=== PATIENT | female | born 1935 | race Two or more races ===

== ENCOUNTER 2021-10-14 11:40 | Inpatient (IN) | payer MEDICARE, OTHER ==
[~2021-10-14] VITALS: Ht 162.6 cm; Wt 50.2 kg
[2021-10-14 12:55] LABS: BASOPHILS % 0.7 % (0.0-2.0); EOSINOPHILS % 0.4 % (0.0-5.0); HEMATOCRIT. 36.3 % (36.0-48.0); HEMOGLOBIN. 11.7 g/dL (12.0-16.0); LYMPHOCYTES % 9.9 % (20.0-50.0); MEAN PLATELET VOLUME 8.2 fl (7.4-10.4); MONOCYTES % 5.3 % (2.0-8.0); NEUTROPHILS % 83.7 % (40.0-76.0); PLATELET 211 x1000/uL (130-400); RED BLOOD CELL COUNT 4.03 mill/uL (4.2-5.4); RED CELL DISTRIBUTION WIDTH 16.3 % (11.6-14.6)
[2021-10-14] MEDS ORDERED: FUROSEMIDE 40MG/4ML VIAL IV ONE (13:00)
[2021-10-14 13:01] LABS: CHLORIDE 110 mEq/L (98-107)
[2021-10-14] MEDS ORDERED: SODIUM POLYSTYRENE SULFONATE 15 G/60 ML BOT PO NR (14:45)
[2021-10-14] MEDS ORDERED: ACETAMINOPHEN 325MG TABLET PO PRN (15:00)
[2021-10-14] MEDS ORDERED: IPRATROPIUM/ALBUTEROL 0.5-3(2.5)MG/3ML NEB HHN PRN (15:00)
[2021-10-14 15:07] LABS: BG BASE EXCESS -0.2 mmol/L (-2.0-2.0); BG CARBOXYHEMOGLOBIN 0.1 % (0.5-1.5); BG DEOXYHEMOGLOBIN 0.3 % (0.0-5.0); BG FRACTION INSPIRED OXYGEN 100; BG METHEMOGLOBIN 0.4 % (0.0-1.5); BG OXYGEN SATURATION 99.7 % (92.0-98.5); BG OXYHEMOGLOBIN 99.2 % (94.0-97.0); BG PCO2 37.6 mmHg (35.0-45.0); BG PH 7.422 (7.350-7.450); BG PO2 560.6 mmHg (75.0-100.0); BG SAMPLE SITE RIGHT RADIAL; BG VENT MODE MASK - BIPAP
[2021-10-14] MEDS: ENOXAPARIN 30MG/0.3ML SYR SUBCUT SCH (16:00)
[2021-10-14] MEDS ORDERED: FUROSEMIDE 40MG/4ML VIAL IVP ONE (16:45)
[2021-10-15] VITALS (7 sets, daily range): BP systolic 131–149; BP diastolic 55–101
[2021-10-15] MEDS ORDERED: FUROSEMIDE 40MG/4ML VIAL IVP SCH (11:45)
[2021-10-15 12:41] LABS: HEMATOCRIT. 38.7 % (36.0-48.0); HEMOGLOBIN. 12.7 g/dL (12.0-16.0); MEAN CORPUSCULAR HEMOGLOBIN 29.6 pg (28.0-32.0); MEAN CORPUSCULAR VOLUME 90.3 fL (81.0-99.0); MEAN PLATELET VOLUME 8.1 fl (7.4-10.4); PLATELET 210 x1000/uL (130-400); RED BLOOD CELL COUNT 4.28 mill/uL (4.2-5.4); RED CELL DISTRIBUTION WIDTH 16.4 % (11.6-14.6)
[2021-10-15 14:26] LABS: BG BASE EXCESS 0.4 mmol/L (-2.0-2.0); BG CARBOXYHEMOGLOBIN 0.5 % (0.5-1.5); BG DEOXYHEMOGLOBIN 0.7 % (0.0-5.0); BG FRACTION INSPIRED OXYGEN 40; BG METHEMOGLOBIN 0.3 % (0.0-1.5); BG OXYGEN SATURATION 99.3 % (92.0-98.5); BG OXYHEMOGLOBIN 98.5 % (94.0-97.0); BG PCO2 35.5 mmHg (35.0-45.0); BG PH 7.448 (7.350-7.450); BG PO2 187.7 mmHg (75.0-100.0); BG SAMPLE SITE RIGHT BRACHIAL; BG TOTAL HEMOGLOBIN 13.3 g/dL (12.0-18.0); BG TOTAL RESPIRATORY RATE 25 b/min; BG VENT MODE MASK - BIPAP
[2021-10-15 15:42] LABS: CLARITY URINE CLEAR (CLEAR); COLOR URINE YELLOW (YELLOW); KETONES URINE NEGATIVE (NEGATIVE); LEUKOCYTE ESTERASE URINE 3+ (NEGATIVE); NITRITE URINE NEGATIVE (NEGATIVE); OCCULT BLOOD URINE 2+ (NEGATIVE); PROTEIN URINE NEGATIVE (NEGATIVE); SPECIFIC GRAVITY URINE 1.009 (1.005-1.030); UROBILINOGEN URINE 0.2 E.U./dL (0.2-1.0)
[2021-10-15] MEDS: ENOXAPARIN 30MG/0.3ML SYR SUBCUT SCH (17:09)
[2021-10-15] MEDS ORDERED: POTA10TA20 PO (17:48)
[2021-10-15] MEDS ORDERED: ATOR40TA70 PO (17:48)
[2021-10-15] MEDS ORDERED: ATEN50TA PO (17:48)
[2021-10-15] MEDS ORDERED: ASPI-1160 PO (17:48)
[2021-10-15] MEDS ORDERED: FURO40TA5 PO (17:48)
[2021-10-15] MEDS ORDERED: CEFTRIAXONE 1 G PREMIX 50 ML IV SCH (18:45)
[2021-10-15] MEDS ORDERED: ASPIRIN 300MG SUPP PR NR (18:45)
[2021-10-15] MEDS: CEFTRIAXONE 1,000 MG in DEXTROSE 5% WATER 50 ML IV SCH (21:09)
[2021-10-16] VITALS (12 sets, daily range): BP systolic 98–154; BP diastolic 50–93
[2021-10-16 06:46] LABS: HEMATOCRIT. 36.2 % (36.0-48.0); HEMOGLOBIN. 12.1 g/dL (12.0-16.0); MEAN CORPUSCULAR HEMOGLOBIN 30.1 pg (28.0-32.0); MEAN CORPUSCULAR VOLUME 90.2 fL (81.0-99.0); MEAN PLATELET VOLUME 8.3 fl (7.4-10.4); PLATELET 194 x1000/uL (130-400); RED BLOOD CELL COUNT 4.01 mill/uL (4.2-5.4); RED CELL DISTRIBUTION WIDTH 16.2 % (11.6-14.6)
[2021-10-16 07:08] LABS: PHOSPHORUS 3.2 mg/dL (2.5-4.9)
[2021-10-16] MEDS ORDERED: ASPIRIN 325MG TABLET PO SCH (09:00)
[2021-10-16 10:26] LABS: PLATELET ESTIMATE NORMAL
[2021-10-16] MEDS ORDERED: MICAFUNGIN 100 MG in SODIUM CHLORIDE 0.9% 100 ML IV SCH (13:00)
[2021-10-16] MEDS: IPRATROPIUM/ALBUTEROL 0.5-3(2.5)MG/3ML NEB HHN SCH ×3 (14:00→20:23)
[2021-10-16 15:24] LABS: INR 1.2; PROTHROMBIN TIME 12.5 sec (9.6-11.0)
[2021-10-16] MEDS: ASPIRIN 81MG TABLET NG SCH (16:27)
[2021-10-16] MEDS: ENOXAPARIN 60MG/0.6ML SYR SUBCUT SCH (18:01)
[2021-10-16] MEDS: ATORVASTATIN CALCIUM 40MG TABLET PO SCH (21:42)
[2021-10-16] MEDS: CEFTRIAXONE 1,000 MG in DEXTROSE 5% WATER 50 ML IV SCH (21:42)
[2021-10-17] VITALS (12 sets, daily range): BP systolic 112–143; BP diastolic 51–79
[2021-10-17] MEDS: IPRATROPIUM/ALBUTEROL 0.5-3(2.5)MG/3ML NEB HHN SCH ×5 (01:05→20:59)
[2021-10-17 08:03] LABS: HEMATOCRIT. 32.8 % (36.0-48.0); HEMOGLOBIN. 11.2 g/dL (12.0-16.0); MEAN CORPUSCULAR HEMOGLOBIN 30.8 pg (28.0-32.0); MEAN CORPUSCULAR VOLUME 90.1 fL (81.0-99.0); MEAN PLATELET VOLUME 8.3 fl (7.4-10.4); PLATELET 191 x1000/uL (130-400); RED BLOOD CELL COUNT 3.64 mill/uL (4.2-5.4); RED CELL DISTRIBUTION WIDTH 15.8 % (11.6-14.6)
[2021-10-17 08:15] LABS: PHOSPHORUS 2.5 mg/dL (2.5-4.9)
[2021-10-17] MEDS: ASPIRIN 81MG TABLET NG SCH (08:33)
[2021-10-17] MEDS ORDERED: GUAIFENESIN/DM 600MG/30MG ER TAB 12HR PO SCH (12:28)
[2021-10-17] MEDS: FUROSEMIDE 40MG/4ML VIAL IVP SCH (14:28)
[2021-10-17 14:31] LABS: PLATELET ESTIMATE NORMAL
[2021-10-17 14:59] LABS: PLATELET ESTIMATE NORMAL
[2021-10-17] MEDS: PANTOPRAZOLE SODIUM 40 MG/VIAL IV SCH (15:32)
[2021-10-17] MEDS: GUAIFENESIN 200MG/10ML SUGAR FREE UDC PO SCH ×2 (16:30→21:08)
[2021-10-17] MEDS: ATORVASTATIN CALCIUM 40MG TABLET PO SCH (21:08)
[2021-10-18] VITALS (12 sets, daily range): BP systolic 111–161; BP diastolic 47–93
[2021-10-18] MEDS: ACETYLCYSTEINE 100MG/ML 10% VIAL 4ML INH SCH ×3 (01:01→15:39)
[2021-10-18] MEDS: IPRATROPIUM/ALBUTEROL 0.5-3(2.5)MG/3ML NEB HHN SCH ×6 (01:02→20:40)
[2021-10-18] MEDS: GUAIFENESIN 200MG/10ML SUGAR FREE UDC PO SCH ×4 (05:34→21:47)
[2021-10-18 07:09] LABS: PHOSPHORUS 2.2 mg/dL (2.5-4.9)
[2021-10-18 07:11] LABS: BASOPHILS % 0.4 % (0.0-2.0); EOSINOPHILS % 0.7 % (0.0-5.0); HEMATOCRIT. 37.4 % (36.0-48.0); HEMOGLOBIN. 12.7 g/dL (12.0-16.0); LYMPHOCYTES % 8.1 % (20.0-50.0); MEAN CORPUSCULAR VOLUME 91.6 fL (81.0-99.0); MEAN PLATELET VOLUME 8.6 fl (7.4-10.4); MONOCYTES % 9.4 % (2.0-8.0); NEUTROPHILS % 81.4 % (40.0-76.0); PLATELET 184 x1000/uL (130-400); RED BLOOD CELL COUNT 4.09 mill/uL (4.2-5.4); RED CELL DISTRIBUTION WIDTH 16.5 % (11.6-14.6)
[2021-10-18] MEDS: FUROSEMIDE 40MG/4ML VIAL IVP SCH (08:49)
[2021-10-18] MEDS: PANTOPRAZOLE SODIUM 40 MG/VIAL IV SCH (08:49)
[2021-10-18] MEDS: ASPIRIN 81MG TABLET NG SCH (08:49)
[2021-10-18] MEDS ORDERED: POTASSIUM PHOS,M-BASIC-D-BASIC 15 MMOL in DEXT 5% WATER 245 ML IV NR (10:00)
[2021-10-18] MEDS: DILTIAZEM HCL 60MG TABLET PO SCH ×3 (11:27→23:39)
[2021-10-18] MEDS: ATORVASTATIN CALCIUM 40MG TABLET PO SCH (21:45)
[2021-10-19] VITALS (13 sets, daily range): BP systolic 127–149; BP diastolic 54–98
[2021-10-19] MEDS: ACETYLCYSTEINE 100MG/ML 10% VIAL 4ML INH SCH ×4 (00:10→11:45)
[2021-10-19] MEDS: IPRATROPIUM/ALBUTEROL 0.5-3(2.5)MG/3ML NEB HHN SCH ×6 (01:15→20:39)
[2021-10-19] MEDS: GUAIFENESIN 200MG/10ML SUGAR FREE UDC PO SCH ×4 (05:27→21:48)
[2021-10-19] MEDS: DILTIAZEM HCL 60MG TABLET PO SCH ×3 (05:28→17:06)
[2021-10-19 07:55] LABS: HEMATOCRIT. 36.4 % (36.0-48.0); HEMOGLOBIN. 12.2 g/dL (12.0-16.0); MEAN CORPUSCULAR HEMOGLOBIN 30.6 pg (28.0-32.0); MEAN CORPUSCULAR VOLUME 91.5 fL (81.0-99.0); MEAN PLATELET VOLUME 8.6 fl (7.4-10.4); PLATELET 166 x1000/uL (130-400); RED BLOOD CELL COUNT 3.98 mill/uL (4.2-5.4); RED CELL DISTRIBUTION WIDTH 16.7 % (11.6-14.6)
[2021-10-19 08:16] LABS: PHOSPHORUS 2.5 mg/dL (2.5-4.9)
[2021-10-19] MEDS: FAMOTIDINE 20MG/2ML VIAL IV SCH (08:36)
[2021-10-19] MEDS: THIAMINE HCL 100MG TABLET PO SCH (08:36)
[2021-10-19] MEDS: ASPIRIN 81MG TABLET NG SCH (08:36)
[2021-10-19] MEDS: MULTIVITAMINS,THER W-MINERALS TABLET PO SCH (08:36)
[2021-10-19] MEDS: FUROSEMIDE 40MG/4ML VIAL IVP SCH (08:36)
[2021-10-19] MEDS ORDERED: POTASSIUM CHLORIDE 20MEQ TABLET SR PO SCH (09:00)
[2021-10-19 16:42] LABS: PLATELET ESTIMATE NORMAL
[2021-10-19] MEDS: ENOXAPARIN 60MG/0.6ML SYR SUBCUT SCH (18:14)
[2021-10-19] MEDS: ATORVASTATIN CALCIUM 40MG TABLET PO SCH (21:47)
[2021-10-20] VITALS (14 sets, daily range): BP systolic 112–145; BP diastolic 46–76
[2021-10-20] MEDS: IPRATROPIUM/ALBUTEROL 0.5-3(2.5)MG/3ML NEB HHN SCH ×6 (00:29→21:25)
[2021-10-20] MEDS: DILTIAZEM HCL 60MG TABLET PO SCH ×4 (00:34→17:35)
[2021-10-20] MEDS: GUAIFENESIN 200MG/10ML SUGAR FREE UDC PO SCH ×4 (04:54→22:51)
[2021-10-20 07:26] LABS: HEMATOCRIT. 37.2 % (36.0-48.0); HEMOGLOBIN. 12.3 g/dL (12.0-16.0); MEAN CORPUSCULAR HEMOGLOBIN 29.9 pg (28.0-32.0); MEAN CORPUSCULAR VOLUME 90.9 fL (81.0-99.0); MEAN PLATELET VOLUME 8.1 fl (7.4-10.4); PLATELET 171 x1000/uL (130-400); RED CELL DISTRIBUTION WIDTH 16.8 % (11.6-14.6)
[2021-10-20 07:42] LABS: CHLORIDE 112 mEq/L (98-107)
[2021-10-20] MEDS: ASPIRIN 81MG TABLET NG SCH (08:21)
[2021-10-20] MEDS: THIAMINE HCL 100MG TABLET PO SCH (08:21)
[2021-10-20] MEDS: MULTIVITAMINS,THER W-MINERALS TABLET PO SCH (08:21)
[2021-10-20] MEDS: FUROSEMIDE 40MG/4ML VIAL IVP SCH (08:22)
[2021-10-20] MEDS: FAMOTIDINE 20MG/2ML VIAL IV SCH (08:22)
[2021-10-20] MEDS: ACETYLCYSTEINE 100MG/ML 10% VIAL 4ML INH SCH ×2 (09:02→16:31)
[2021-10-20] MEDS ORDERED: DEXTROSE 50% WATER 50ML SYRINGE IV PRN (13:00)
[2021-10-20] MEDS: BLOOD SUGAR DIAGNOSTIC STRIP TEST SCH ×2 (16:50→20:32)
[2021-10-20] MEDS: INSULIN LISPRO 100 UNITS/ML SUBCUT SCH ×2 (17:03→20:33)
[2021-10-20] MEDS: ENOXAPARIN 60MG/0.6ML SYR SUBCUT SCH (17:35)
[2021-10-20] MEDS: ATORVASTATIN CALCIUM 40MG TABLET PO SCH (20:20)
[2021-10-21] VITALS (16 sets, daily range): BP systolic 108–149; BP diastolic 47–81
[2021-10-21 00:25] LABS: PLATELET ESTIMATE NORMAL
[2021-10-21] MEDS: IPRATROPIUM/ALBUTEROL 0.5-3(2.5)MG/3ML NEB HHN SCH ×4 (01:35→16:04)
[2021-10-21] MEDS: ACETYLCYSTEINE 100MG/ML 10% VIAL 4ML INH SCH ×3 (01:35→12:03)
[2021-10-21] MEDS: GUAIFENESIN 200MG/10ML SUGAR FREE UDC PO SCH ×4 (05:13→22:30)
[2021-10-21] MEDS: BLOOD SUGAR DIAGNOSTIC STRIP TEST SCH ×4 (06:19→21:31)
[2021-10-21] MEDS: DILTIAZEM HCL 60MG TABLET PO SCH ×4 (06:22→17:17)
[2021-10-21 06:51] LABS: BASOPHILS % 0.1 % (0.0-2.0); EOSINOPHILS % 0.1 % (0.0-5.0); HEMATOCRIT. 35.8 % (36.0-48.0); MEAN CORPUSCULAR HEMOGLOBIN 30.7 pg (28.0-32.0); MEAN CORPUSCULAR VOLUME 91.8 fL (81.0-99.0); MEAN PLATELET VOLUME 8.4 fl (7.4-10.4); MONOCYTES % 10.4 % (2.0-8.0); NEUTROPHILS % 81.4 % (40.0-76.0); PLATELET 155 x1000/uL (130-400); RED CELL DISTRIBUTION WIDTH 17.3 % (11.6-14.6)
[2021-10-21] MEDS: INSULIN LISPRO 100 UNITS/ML SUBCUT SCH ×4 (07:20→21:00)
[2021-10-21 07:50] LABS: PHOSPHORUS 1.6 mg/dL (2.5-4.9)
[2021-10-21] MEDS ORDERED: POTASSIUM CHLORIDE INJ 40 MEQ in DEXT 5% WATER 250 ML IV ONE (08:30)
[2021-10-21] MEDS: ASPIRIN 81MG TABLET NG SCH (09:15)
[2021-10-21] MEDS: THIAMINE HCL 100MG TABLET PO SCH (09:15)
[2021-10-21] MEDS: FUROSEMIDE 40MG/4ML VIAL IVP SCH (09:15)
[2021-10-21] MEDS: FAMOTIDINE 20MG/2ML VIAL IV SCH (09:15)
[2021-10-21] MEDS: MULTIVITAMINS,THER W-MINERALS TABLET PO SCH (09:16)
[2021-10-21] MEDS ORDERED: DOCUSATE SODIUM 250MG CAPSULE PO PRN (10:45)
[2021-10-21] MEDS ORDERED: LACTULOSE 20G/30ML UDC PO PRN (10:45)
[2021-10-21] MEDS: DOCUSATE SODIUM SUGAR FREE 100MG/10ML UDC NG SCH ×2 (10:46→17:16)
[2021-10-21] MEDS: KCL 20MEQ/100ML PREMIX 100 ML IV SCH ×2 (10:46→13:03)
[2021-10-21] MEDS ORDERED: POTASSIUM PHOS,M-BASIC-D-BASIC 15 MMOL in DEXT 5% WATER 245 ML IV NR (11:00)
[2021-10-21] MEDS: ENOXAPARIN 60MG/0.6ML SYR SUBCUT SCH (17:16)
[2021-10-21] MEDS ORDERED: HYDROMORPHONE HCL/PF 2MG/ML CPJ IV PRN ×2 (17:45→21:45)
[2021-10-21] MEDS ORDERED: NALOXONE HCL 0.4MG/ML VIAL IV PRN (17:45)
[2021-10-21] MEDS: ATORVASTATIN CALCIUM 40MG TABLET PO SCH (21:40)
[2021-10-22] VITALS (11 sets, daily range): BP systolic 107–145; BP diastolic 50–68
[2021-10-22] MEDS: DILTIAZEM HCL 60MG TABLET PO SCH ×4 (01:03→17:03)
[2021-10-22] MEDS: IPRATROPIUM/ALBUTEROL 0.5-3(2.5)MG/3ML NEB HHN SCH ×6 (02:16→21:23)
[2021-10-22] MEDS: ACETYLCYSTEINE 100MG/ML 10% VIAL 4ML INH SCH ×3 (02:16→16:30)
[2021-10-22] MEDS: GUAIFENESIN 200MG/10ML SUGAR FREE UDC PO SCH ×4 (04:16→21:46)
[2021-10-22] MEDS: BLOOD SUGAR DIAGNOSTIC STRIP TEST SCH ×4 (06:05→21:00)
[2021-10-22 06:51] LABS: BASOPHILS % 0.3 % (0.0-2.0); EOSINOPHILS % 0.2 % (0.0-5.0); HEMATOCRIT. 36.2 % (36.0-48.0); HEMOGLOBIN. 12.1 g/dL (12.0-16.0); LYMPHOCYTES % 8.2 % (20.0-50.0); MEAN CORPUSCULAR HEMOGLOBIN 30.6 pg (28.0-32.0); MEAN PLATELET VOLUME 8.3 fl (7.4-10.4); MONOCYTES % 11.3 % (2.0-8.0); PLATELET 159 x1000/uL (130-400); RED BLOOD CELL COUNT 3.93 mill/uL (4.2-5.4)
[2021-10-22 07:07] LABS: CHLORIDE 108 mEq/L (98-107)
[2021-10-22 07:18] LABS: PHOSPHORUS 2.5 mg/dL (2.5-4.9)
[2021-10-22] MEDS: INSULIN LISPRO 100 UNITS/ML SUBCUT SCH ×4 (07:20→21:00)
[2021-10-22] MEDS: ASPIRIN 81MG TABLET NG SCH (08:29)
[2021-10-22] MEDS: MULTIVITAMINS,THER W-MINERALS TABLET PO SCH (08:29)
[2021-10-22] MEDS: DOCUSATE SODIUM SUGAR FREE 100MG/10ML UDC NG SCH ×2 (08:29→17:03)
[2021-10-22] MEDS: THIAMINE HCL 100MG TABLET PO SCH (08:29)
[2021-10-22] MEDS: FAMOTIDINE 20MG/2ML VIAL IV SCH (08:29)
[2021-10-22] MEDS: METOCLOPRAMIDE HCL 10MG/2ML VIAL IV SCH (17:03)
[2021-10-22] MEDS: ENOXAPARIN 60MG/0.6ML SYR SUBCUT SCH (17:22)
[2021-10-22] MEDS: ATORVASTATIN CALCIUM 40MG TABLET PO SCH (21:46)
[2021-10-23] VITALS (12 sets, daily range): BP systolic 61–152; BP diastolic 31–83
[2021-10-23] MEDS: DILTIAZEM HCL 60MG TABLET PO SCH ×3 (00:25→12:00)
[2021-10-23] MEDS: METOCLOPRAMIDE HCL 10MG/2ML VIAL IV SCH ×3 (00:25→12:00)
[2021-10-23] MEDS: IPRATROPIUM/ALBUTEROL 0.5-3(2.5)MG/3ML NEB HHN SCH ×4 (02:33→17:03)
[2021-10-23] MEDS: GUAIFENESIN 200MG/10ML SUGAR FREE UDC PO SCH ×3 (05:12→16:30)
[2021-10-23] MEDS: BLOOD SUGAR DIAGNOSTIC STRIP TEST SCH ×2 (06:55→11:50)
[2021-10-23] MEDS: INSULIN LISPRO 100 UNITS/ML SUBCUT SCH ×2 (06:55→12:20)
[2021-10-23] MEDS: MULTIVITAMINS,THER W-MINERALS TABLET PO SCH (08:55)
[2021-10-23] MEDS: DOCUSATE SODIUM SUGAR FREE 100MG/10ML UDC NG SCH (08:55)
[2021-10-23] MEDS: FAMOTIDINE 20MG/2ML VIAL IV SCH (08:55)
[2021-10-23] MEDS: ASPIRIN 81MG TABLET NG SCH (08:55)
[2021-10-23] MEDS: THIAMINE HCL 100MG TABLET PO SCH (08:55)
[2021-10-23] MEDS ORDERED: FENTANYL CITRATE/PF 500 MCG in SODIUM CHLORIDE 0.9% 40 ML IV PRN (10:30)
[2021-10-23] MEDS ORDERED: FENTANYL CITRATE/PF 50MCG/ML 2ML VIAL IV PRN (10:30)
[2021-10-23] MEDS: LORAZEPAM 2MG/ML CPJ IV PRN ×2 (10:59→16:42)
[2021-10-23 11:16] LABS: BG BASE EXCESS 9.6 mmol/L (-2.0-2.0); BG CARBOXYHEMOGLOBIN 0.8 % (0.5-1.5); BG DEOXYHEMOGLOBIN 7.6 % (0.0-5.0); BG FRACTION INSPIRED OXYGEN 21; BG HCO3 ACT 34.5 mmol/L (22.0-26.0); BG OXYGEN SATURATION 92.3 % (92.0-98.5); BG OXYHEMOGLOBIN 91.6 % (94.0-97.0); BG PCO2 48.1 mmHg (35.0-45.0); BG PH 7.474 (7.350-7.450); BG PO2 60.9 mmHg (75.0-100.0); BG SAMPLE SITE LEFT RADIAL; BG VENT MODE ROOM AIR
[2021-10-23] MEDS ORDERED: FENTANYL CITRATE 2,500 MCG in SODIUM CHLORIDE 0.9% 200 ML IV SCH ×2 (12:00→18:30)
[2021-10-23 12:46] LABS: HEMATOCRIT. 36.8 % (36.0-48.0); HEMOGLOBIN. 12.3 g/dL (12.0-16.0); MEAN CORPUSCULAR HEMOGLOBIN 30.5 pg (28.0-32.0); MEAN CORPUSCULAR VOLUME 91.3 fL (81.0-99.0); MEAN PLATELET VOLUME 8.7 fl (7.4-10.4); PLATELET 178 x1000/uL (130-400); RED BLOOD CELL COUNT 4.03 mill/uL (4.2-5.4); RED CELL DISTRIBUTION WIDTH 16.6 % (11.6-14.6)
[2021-10-23 12:55] LABS: CHLORIDE 106 mEq/L (98-107)
[2021-10-23] MEDS ORDERED: FENTANYL CITRATE/PF 2,500 MCG in SODIUM CHLORIDE 0.9% 200 ML IV SCH (17:00)
[2021-10-23] MEDS ORDERED: LORAZEPAM 2MG/ML CPJ IV PRN (19:00)
[2021-10-23 23:55] LABS: PLATELET ESTIMATE NORMAL
== END 2021-10-24 04:54 | DRG 64 ==
LOC: ER 11:40 → 3WST 23:46 → EDBEDREQTM 10-15 06:39 → EDBEDREQSVC 10-15 06:39 → EDBEDREQDT 10-15 06:39 → ENRESERV 10-15 07:19
PROVIDERS: ADMIT Family Medicine Adult Medicine; ATTEND Family Medicine Adult Medicine
PROC: 5A09457 Assistance with Respiratory Ventilation, 24-96 Consecutive Hours, Continuous Positive Airway Pressure (ICD-10-PCS; 2021-10-14)
PROC: 5A09357 Assistance with Respiratory Ventilation, Less than 24 Consecutive Hours, Continuous Positive Airway Pressure (ICD-10-PCS; 2021-10-16)
PROC: 4A10X4Z Monitoring of Central Nervous Electrical Activity, External Approach (ICD-10-PCS; principal; 2021-10-18)
DX: I63.511 Cerebral infarction due to unspecified occlusion or stenosis of right middle cerebral artery (principal); J96.01 Acute respiratory failure with hypoxia; J69.0 Pneumonitis due to inhalation of food and vomit; I50.33 Acute on chronic diastolic (congestive) heart failure; E44.0 Moderate protein-calorie malnutrition; N39.0 Urinary tract infection, site not specified; I42.2 Other hypertrophic cardiomyopathy; Z68.1 Body mass index [BMI] 19.9 or less, adult; G93.40 Encephalopathy, unspecified; I11.0 Hypertensive heart disease with heart failure; E78.5 Hyperlipidemia, unspecified; E87.5 Hyperkalemia; I27.81 Cor pulmonale (chronic); I27.29 Other secondary pulmonary hypertension; I48.0 Paroxysmal atrial fibrillation; I65.21 Occlusion and stenosis of right carotid artery; E78.00 Pure hypercholesterolemia, unspecified; L89.156 Pressure-induced deep tissue damage of sacral region; I36.1 Nonrheumatic tricuspid (valve) insufficiency; I34.0 Nonrheumatic mitral (valve) insufficiency; R13.11 Dysphagia, oral phase; Z20.822 Contact with and (suspected) exposure to COVID-19; D64.9 Anemia, unspecified; Z66 Do not resuscitate; Z86.73 Personal history of transient ischemic attack (TIA), and cerebral infarction without residual deficits; Z88.6 Allergy status to analgesic agent; Z79.899 Other long term (current) drug therapy; Z51.5 Encounter for palliative care; Z82.49 Family history of ischemic heart disease and other diseases of the circulatory system
CPT/HCPCS: 36415; 36600; 70547; 70551; 71045; 71250; 78580; 80048; 80053; 81003; 82040; 82140; 82375; 82805; 82962; 83721; 83735; 83880; 84100; 84134; 84484; 85025; 87106; 87426; 93005; 93306; 93880; 93970; 94640; 94660; 95816; 97110; 97162; 97166; 97530; 99291; A6261; C9113; J0696; J1650; J1940; J2060; J2248; J2765; J3010; J3480; J3490; J7050; J7060; J7608; A4315